=== PATIENT | female | born 1985 | race African-American/Black ===

== ENCOUNTER 2017-01-04 22:08 | Emergency (ER) | payer MEDICAID, OTHER ==
[2017-01-04 22:09] VITALS: BP 119/79; PULSE 83; RESP 16; TEMP 98.7; O2SAT 100
--- NOTE | 2017-01-04 22:49 | PD ---
HPI Chief Complaint: Skin Problem Time Seen by Provider: 22:49 Travel History International Travel<30 days: No Contact w/Intl Traveler<30days: No Traveled to known affect area: No History of Present Illness HPI 31-year-old female presents to emergency department for evaluation of pruritic lesions and associated erythema on her right arm. She has also noticed one of the lesions under her left proximal upper extremity. Patient states that this woke her up out of her sleep due to the itching. Denies any new contacts. Denies any recent illnesses, fever, chills. Has not taken anything to relieve the symptoms. No new medications. Patient states that her neighbor does have bedbugs. She has no other symptoms to report. [facility] Past Medical History Medical History: Denies Significant Hx Diminished Hearing: No Immunizations Current: No ?: Not : 3 Para: 3 Tubal Ligation: Yes Social History Alcohol Use: No Tobacco Use: No Substance Use: No Allergies-Medications (Allergen,Severity, Reaction): Coded Allergies: No Known Allergies (Verified , 01/04/17) Reported Meds & Prescriptions Reported Meds & Active Scripts Active No Active Prescriptions or Reported Medications Review of Systems Except as stated in HPI: all other systems reviewed are Neg Physical Exam Narrative GENERAL: Well-nourished female patient, in no acute distress SKIN: Focused skin assessment warm/dry. There are 4 subcentimeter raised blanchable erythematous lesions on the right forearm. There is significant erythema surrounding these is very mild, nonpitting edema. HEAD: Atraumatic. Normocephalic. EYES: Pupils equal and round. No scleral icterus. No injection or drainage. ENT: No nasal bleeding or discharge. Mucous membranes pink and moist. NECK: Trachea midline. No JVD. CARDIOVASCULAR: Regular rate and rhythm. No murmur appreciated. RESPIRATORY: No accessory muscle use. Clear to auscultation. Breath sounds equal bilaterally. GASTROINTESTINAL: Abdomen soft, non-tender, nondistended. Hepatic and splenic margins not palpable. MUSCULOSKELETAL: No obvious deformities. No clubbing. No cyanosis. Distal pulses are palpable. Cap refill is within normal limits. NEUROLOGICAL: Awake and alert. No obvious cranial nerve deficits. Motor grossly within normal limits. Normal speech. PSYCHIATRIC: Appropriate mood and affect; insight and judgment normal. Data Data Last Documented VS Vital Signs Date Time Temp Pulse Resp B/P Pulse Ox O2 Delivery O2 Flow Rate FiO2 01/04/17 22:09 98.7 83 16 119/79 100 Room Air Orders Diphenhydramine (Benadryl) (01/04/17 23:00) Dexamethasone Inj (Decadron Inj) (01/04/17 23:00) Famotidine (Pepcid) (01/04/17 23:00) MDM Medical Decision Making Medical Screen Exam Complete: Yes Emergency Medical Condition: Yes Medical Record Reviewed: Yes Differential Diagnosis Local reaction to insect bites versus bed bugs versus cellulitis or cyst contact dermatitis Narrative Course 31-year-old female presents to emergency department for evaluation of pruritic lesions with associated erythema and edema of the right forearm. Physical exam is consistent with possible bedbug bites in a local reaction. Patient is treated for this here at the emergency department. She is encouraged to follow- up with primary care provider. I have counseled her on how to help get rid of bedbugs. She agrees to return immediately with any acute worsening of symptoms. Diagnosis Primary Impression: Allergy to bugs Additional Impression: Bed bug bite Qualified Code: W57.XXXA - Bed bug bite, initial encounter Referrals: Primary Care Physician Patient Instructions: Bed Bugs (GEN), General Instructions Departure Forms: Tests/Procedures, Work Release Enter return to work date: January 06, 2017 Additional Instructions: Do not scratch the lesions Follow-up with a primary care provider Wash bedding and clothing in hot water and dry on the hot setting Continue Benadryl as directed on the package as needed for itching Return immediately with any acute worsening of symptoms Med/Other Pt SpecificInfo: Prescription(s) given Scripts Prednisone 50 Mg Tab50 Mg PO DAILY 3 Days Ref 0 Prov:Lazara Keane 01/04/17 Disposition: 01 DISCHARGE HOME Condition: Stable Lazara Keane January 04, 2017 22:49
[2017-01-04] MEDS ORDERED: DEXAMETHASONE SOD PHOS 20 MG/5 ML VIAL IM ONE (23:00)
[2017-01-04] MEDS ORDERED: diphenhydrAMINE HCL 50 MG CAP PO ONE (23:00)
[2017-01-04] MEDS ORDERED: FAMOTIDINE 20 MG TAB PO ONE (23:00)
[2017-01-04] MEDS ORDERED: PRED50 PO (23:21)
[2017-01-04] MEDS ORDERED: CEPH-460 PO (23:21)
== END 2017-01-04 23:38 | disposition home or self-care (01) ==
LOC: NEPK 22:08
DX: T63.481A Toxic effect of venom of other arthropod, accidental (unintentional), initial encounter (principal); W57.XXXA Bitten or stung by nonvenomous insect and other nonvenomous arthropods, initial encounter
CPT/HCPCS: 96372; 99283; J1100; Q0163

== ENCOUNTER 2017-07-12 08:38 | Emergency (ER) | payer OTHER, MEDICAID ==
[~2017-07-12] VITALS: Ht 170.2 cm; Wt 58.0 kg
[~2017-07-12 08:38] MED LIST: PRED50 PO
[2017-07-12 08:40] VITALS: BP 132/88; PULSE 89; RESP 14; TEMP 98.4; O2SAT 99
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
[2017-07-12] MEDS ORDERED: IBUPROFEN 600 MG TAB PO ONE (09:30)
[2017-07-12] MEDS ORDERED: IBUP-232 PO (09:33)
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
== END 2017-07-12 10:46 | disposition home or self-care (01) ==
LOC: NEPD 08:38
DX: T14.8XXA Other injury of unspecified body region, initial encounter (principal); S09.90XA Unspecified injury of head, initial encounter; M25.512 Pain in left shoulder; V43.52XA Car driver injured in collision with other type car in traffic accident, initial encounter
CPT/HCPCS: 70450; 72072; 73030; 99285